=== PATIENT | female | born 1965 | race Caucasian/White ===

== ENCOUNTER 2016-10-06 13:24 | Emergency (ER) | payer OTHER ==
[~2016-10-06] VITALS: Ht 167.6 cm; Wt 68.0 kg
[2016-10-06 13:35] VITALS: BP 146/77
[2016-10-06] MEDS ORDERED: NAPROXEN 500 MG TABLET PO STA (13:39)
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
[2016-10-06] MEDS ORDERED: NAPR500T8 PO (14:46)
[2016-10-06] MEDS ORDERED: CYCL10TA2 PO (14:46)
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
== END 2016-10-06 14:53 | disposition home or self-care (01) ==
LOC: ER 13:24
DX: S13.9XXA Sprain of joints and ligaments of unspecified parts of neck, initial encounter (principal); Z88.0 Allergy status to penicillin; Z88.1 Allergy status to other antibiotic agents; Z88.2 Allergy status to sulfonamides; V89.2XXA Person injured in unspecified motor-vehicle accident, traffic, initial encounter; Y92.413 State road as the place of occurrence of the external cause; Y93.89 Activity, other specified; Y99.8 Other external cause status
CPT/HCPCS: 72125; 99284-25